=== PATIENT | female | born 1965 | race Hispanic/Latino ===

== ENCOUNTER 2022-07-09 11:39 | Inpatient (IN) | payer BC ==
[~2022-07-09] VITALS: Ht 160 cm; Wt 71.6 kg
[~2022-07-09 11:39] MED LIST: ALBUMIN (HUMAN) 25% 50 ML IV ONE; SODIUM BICARB 8.4% 50ML SYRINGE IVP ONE
[2022-07-09] MEDS ORDERED: IPRATROPIUM 0.5 MG/2.5 ML INH IH PRN (17:30)
[2022-07-09] MEDS ORDERED: DEXTROSE 50%-WATER 50 ML DISP.SYRIN IV PRN (17:30)
[2022-07-09] MEDS ORDERED: GLUCAGON 1MG KIT 1 MG ML IM PRN (17:30)
[2022-07-09 17:31] LABS: BASOPHILS % (AUTO) 0.7 % (0.0-5.0); EOSINOPHILS % (AUTO) 1.3 % (0.0-8.0); HEMATOCRIT 31.4 % (36-48); LYMPHOCYTES % (AUTO) 30.4 % (21.0-51.0); MEAN CORPUSCULAR HEMOGLOBIN 30.4 pg (27.0-33.0); MEAN CORPUSCULAR HGB CONC 31.8 g/dL (32.0-36.0); MEAN CORPUSCULAR VOLUME 95.4 fL (79-99); MONOCYTES % (AUTO) 9.2 % (3.0-13.0); NEUTROPHILS % (AUTO) 56.7 % (40.0-77.0); PLATELET COUNT (AUTO) 302 K/uL (130-400); RED BLOOD CELL COUNT(AUTO) 3.29 MIL/uL (4.00-5.50); WHITE BLOOD COUNT (AUTO) 8.2 K/uL (4.8-10.8)
[2022-07-09 17:43] LABS: INR 0.94 (0.85-1.15); PROTHROMBIN TIME 10.3 SEC (9.6-11.6)
[2022-07-09 17:44] LABS: PARTIAL THROMBOPLASTIN TIME 27.6 SEC (26.3-35.5)
[2022-07-09 17:54] LABS: ALBUMIN 3.2 g/dL (3.5-5.0); CREATININE 4.4 mg/dL (0.5-1.5); POTASSIUM 4.9 mmol/L (3.5-5.1); THYROID STIMULATING HORMONE 4.18 uIU/mL (0.36-3.74); TOTAL PROTEIN, SERUM 7.2 g/dL (6.0-8.3)
[2022-07-09 18:02] LABS: HEMOGLOBIN A1C 8.4 % (4.0-6.0)
[2022-07-09 20:45] VITALS: BP 140/70
[2022-07-09] MEDS: METOPROLOL TARTRATE 25 MG TAB PO SCH (20:59)
[2022-07-09] MEDS ORDERED: INSULIN GLARGINE 100 UNITS/ML 10 ML VIAL SQ SCH (21:00)
[2022-07-09] MEDS ORDERED: INSULIN HUMULIN R 100 UNIT/ML 3ML SQ SCH (21:00)
[2022-07-09] MEDS: INSULIN HUMULIN R 100 UNIT/ML 3ML SQ SCH (21:08)
[2022-07-10] VITALS (27 sets, daily range): BP systolic 87–170; BP diastolic 41–78
[2022-07-10 03:40] LABS: MEAN CORPUSCULAR HEMOGLOBIN 30.5 pg (27.0-33.0); MEAN CORPUSCULAR HGB CONC 32.3 g/dL (32.0-36.0); MEAN CORPUSCULAR VOLUME 94.3 fL (79-99); PLATELET COUNT (AUTO) 313 K/uL (130-400); RED BLOOD CELL COUNT(AUTO) 3.18 MIL/uL (4.00-5.50); RED CELL DISTRIBUTION WIDTH 15.9 % (11.0-15.5); WHITE BLOOD COUNT (AUTO) 8.1 K/uL (4.8-10.8)
[2022-07-10 03:52] LABS: CREATININE 4.8 mg/dL (0.5-1.5); POTASSIUM 4.2 mmol/L (3.5-5.1)
[2022-07-10 03:53] LABS: MAGNESIUM 1.8 mg/dL (1.80-2.40)
[2022-07-10 04:06] LABS: EOSINOPHILS % (MANUAL) 1 % (1-6); LYMPHOCYTES % (MANUAL) 24 % (22-44); MAN.DIFF COMMENT-IMPRESSION MANUAL DIFFERENTIAL; MONOCYTES % (MANUAL) 10 % (2-9); PLATELET MORPHOLOGY COMMENT ADEQUATE; SEGMENTED NEUTROPHILS % 65 % (40-70)
[2022-07-10] MEDS ORDERED: MAGNESIUM 2GM PREMIX 50ML 50 ML IV PRN (05:00)
[2022-07-10] MEDS ORDERED: VANCOMYCIN 1G/250ML KIT 250 ML IV ONE (06:24)
[2022-07-10] MEDS: METOPROLOL TARTRATE 25 MG TAB PO SCH (06:43)
[2022-07-10] MEDS: INSULIN HUMULIN R 100 UNIT/ML 3ML SQ SCH ×2 (07:30→11:30)
[2022-07-10] MEDS ORDERED: DELNIDO FORMULA 2 BAG IV ONE (07:41)
[2022-07-10] MEDS ORDERED: NOREPINEPHRINE BITARTRATE 8 MG in DEXTROSE 5%-WATER 250 ML IV PRN (08:00)
[2022-07-10] MEDS ORDERED: AMINOCAPROIC ACID 5,000MG VIAL 15,000 MG in 0.9% NACL 500ML IV.SOLN 420 ML IV PRN (08:00)
[2022-07-10] MEDS ORDERED: EPINEPHRINE PF 1MG (1:1,000) 10 MG in 0.9% NACL 250ML 240 ML IV PRN (08:00)
[2022-07-10] MEDS: VANCOMYCIN 1G VIAL IVPB SCH ×2 (08:30→10:56)
[2022-07-10] MEDS ORDERED: ASPIRIN 81MG CHEW TAB PO SCH (09:00)
[2022-07-10] MEDS ORDERED: NOREPINEPHRINE BITARTRATE 1 MG/1 ML ML IV ONE ×2 (09:36→12:13)
[2022-07-10] MEDS ORDERED: NITROGLYCERIN 50MG/D5W 250ML 1 BOT ONE (10:04)
[2022-07-10] MEDS ORDERED: VANCOMYCIN 1G VIAL ONE ×4 (10:27→11:09)
[2022-07-10] MEDS ORDERED: ROPIVACAINE 0.5% 5MG/ML 30ML IJ ONE (10:27)
[2022-07-10] MEDS ORDERED: PAPAVERINE HCL 30 MG/ML 2ML VIAL ONE (10:29)
[2022-07-10] MEDS ORDERED: MIDAZOLAM HCL 1 MG/ML 2ML VIAL ONE (12:13)
[2022-07-10] MEDS ORDERED: HEPARIN 10,000 UNIT/10ML (1,000 UNIT/ML) VIAL ONE (12:13)
[2022-07-10] MEDS ORDERED: EPINEPHRINE PF 1MG (1:1,000) 1 MG/ML AMP ONE (12:13)
[2022-07-10] MEDS ORDERED: PROPOFOL 10 MG/ML 20ML VIAL IV ONE ×2 (12:13→16:41)
[2022-07-10] MEDS ORDERED: LIDOCAINE PF 100MG/5ML (2%) SYRINGE 5ML ONE (12:13)
[2022-07-10] MEDS ORDERED: AMINOCAPROIC ACID 5,000MG VIAL ONE (12:13)
[2022-07-10] MEDS ORDERED: ESMOLOL HCL 10 MG/ML 10 ML VIAL ONE (12:13)
[2022-07-10] MEDS ORDERED: FENTANYL CITRATE PF 50 MCG/1 ML 20ML VIAL IJ ONE (12:13)
[2022-07-10] MEDS ORDERED: SODIUM BICARB 50MEQ 50ML VIAL 150 ML ONE (12:13)
[2022-07-10] MEDS ORDERED: PROTAMINE SULFATE 10 MG/ML 25ML VIAL IV ONE (12:13)
[2022-07-10] MEDS ORDERED: ROCURONIUM 10MG/1ML SYR 10 MG/ML ML ONE ×2 (12:13→15:04)
[2022-07-10] MEDS ORDERED: ETOMIDATE 20MG VIAL ONE (12:14)
[2022-07-10 12:45] LABS: ABG BASE EXCESS -3.2 mmol/L (-2.0-3.0); ABG HCO3 20.5 mmol/L (21.0-28.0); ABG OXYGEN SATURATION 99.7 % (95.0-99.0); ABG PCO2 32 mmHg (32-45)
[2022-07-10] MEDS ORDERED: MAGNESIUM SULFATE 1 GM/2 ML VIAL ONE ×2 (14:06→14:07)
[2022-07-10] MEDS ORDERED: AMIODARONE 150MG VIAL ONE (14:13)
[2022-07-10 14:50] LABS: ABG BASE EXCESS 1.6 mmol/L (-2.0-3.0); ABG HCO3 22.7 mmol/L (21.0-28.0); ABG OXYGEN SATURATION 99.5 % (95.0-99.0); ABG PCO2 23 mmHg (32-45)
[2022-07-10 15:31] LABS: ABG BASE EXCESS -2.9 mmol/L (-2.0-3.0); ABG HCO3 20.4 mmol/L (21.0-28.0); ABG OXYGEN SATURATION 99.4 % (95.0-99.0); ABG PCO2 29 mmHg (32-45)
[2022-07-10 16:21] LABS: ABG BASE EXCESS 0.1 mmol/L (-2.0-3.0); ABG HCO3 22.9 mmol/L (21.0-28.0); ABG OXYGEN SATURATION 99.5 % (95.0-99.0); ABG PCO2 30 mmHg (32-45)
[2022-07-10] MEDS: 0.9%NACL 10ML VIAL IVP SCH (17:00)
[2022-07-10] MEDS ORDERED: MAGNESIUM SULFATE 1 GM in 0.9%NACL 50ML 50 ML IV PRN ×4 (17:00)
[2022-07-10] MEDS ORDERED: ACETAMINOPHEN 650 MG SUPPOSITORY RC PRN (17:00)
[2022-07-10] MEDS ORDERED: DEXTROSE 50%-WATER 50 ML DISP.SYRIN IV PRN (17:00)
[2022-07-10] MEDS ORDERED: MORPHINE 4 MG SYG IVP PRN (17:00)
[2022-07-10] MEDS ORDERED: LACTATED RINGERS 1000ML 1,000 ML IV SCH (17:00)
[2022-07-10] MEDS ORDERED: 0.9%NACL 10ML VIAL IVP PRN (17:00)
[2022-07-10] MEDS ORDERED: POTASSIUM CHLORIDE 20MEQ/100ML 100 ML IV PRN (17:00)
[2022-07-10] MEDS ORDERED: NITROGLYCERIN 50MG/D5W 250ML 250 BOT IV PRN (17:00)
[2022-07-10] MEDS ORDERED: GLUCAGON 1MG KIT 1 MG ML IM PRN (17:00)
[2022-07-10] MEDS ORDERED: MEPERIDINE-PF 25 MG/ML SYG IVP PRN (17:00)
[2022-07-10] MEDS ORDERED: HYDROCODONE/ACETAMINOPHEN 5/325 MG TAB PO PRN (17:00)
[2022-07-10] MEDS ORDERED: ALBUMIN (HUMAN) 5% 250 ML IV PRN (17:00)
[2022-07-10] MEDS ORDERED: CALCIUM GLUC 1GM/10ML VIAL IV PRN (17:00)
[2022-07-10 17:11] LABS: ABG BASE EXCESS 2.6 mmol/L (-2.0-3.0); ABG HCO3 24.9 mmol/L (21.0-28.0); ABG PCO2 29 mmHg (32-45)
[2022-07-10] MEDS: HYDRALAZINE 20MG/ML VIAL IV PRN (17:24)
[2022-07-10 17:26] LABS: HEMATOCRIT 19.7 % (36-48)
[2022-07-10] MEDS ORDERED: INSULIN REGULAR, HUMAN 3ML 100 UNIT in 0.9%NACL 100ML 99 ML IV SCH ×2 (17:30)
[2022-07-10] MEDS ORDERED: NICARDIPINE 25MG INJ 100 MG in 0.9%NACL 100ML 60 ML IV SCH (17:30)
[2022-07-10 17:31] LABS: CREATININE 4.2 mg/dL (0.5-1.5); MAGNESIUM 3.4 mg/dL (1.80-2.40); POTASSIUM 4.2 mmol/L (3.5-5.1)
[2022-07-10] MEDS ORDERED: 0.9% NACL 500ML IV.SOLN 500 ML IV ONE ×2 (17:50→19:01)
[2022-07-10] MEDS: VANCOMYCIN IV SCH (18:25)
[2022-07-10] MEDS: [UNRECOGNIZED DRUG - OTHER] IV SCH (18:25)
[2022-07-10 18:30] LABS: ABG BASE EXCESS -2.4 mmol/L (-2.0-3.0); ABG HCO3 20.9 mmol/L (21.0-28.0); ABG OXYGEN SATURATION 98.5 % (95.0-99.0); ABG PCO2 29 mmHg (32-45)
[2022-07-10 19:33] LABS: ABG BASE EXCESS 0.1 mmol/L (-2.0-3.0); ABG HCO3 24.1 mmol/L (21.0-28.0); ABG OXYGEN SATURATION 98.8 % (95.0-99.0); ABG PCO2 36 mmHg (32-45)
[2022-07-10 20:34] LABS: ABG BASE EXCESS -0.4 mmol/L (-2.0-3.0); ABG HCO3 23.5 mmol/L (21.0-28.0); ABG OXYGEN SATURATION 98.9 % (95.0-99.0); ABG PCO2 36 mmHg (32-45)
[2022-07-10] MEDS: ATORVASTATIN 20 MG TABLET PO SCH (20:55)
[2022-07-10] MEDS: CARVEDILOL 3.125 MG TABLET PO SCH (21:00)
[2022-07-10] MEDS: ONDANSETRON 4MG INJ IVP PRN (21:04)
[2022-07-10] MEDS: METOCLOPRAMIDE 10 MG/2 ML VIAL IVP PRN (21:29)
[2022-07-10 21:44] LABS: ABG HCO3 21.1 mmol/L (21.0-28.0); ABG OXYGEN SATURATION 98.4 % (95.0-99.0); ABG PCO2 39 mmHg (32-45)
[2022-07-10] MEDS: POTASSIUM CHLORIDE 20MEQ/100ML 100 ML IV PRN ×2 (21:54→22:57)
[2022-07-10] MEDS ORDERED: ALBUMIN (HUMAN) 5% 250 ML IV SCH (22:00)
[2022-07-10] MEDS ORDERED: SODIUM BICARB 50MEQ 50ML VIAL IV ONE (22:00)
[2022-07-10] MEDS: ACETAMINOPHEN 325 MG TAB PO PRN (22:17)
[2022-07-11] VITALS (80 sets, daily range): BP systolic 87–152; BP diastolic 34–78
[2022-07-11] MEDS: 0.9%NACL 10ML VIAL IVP SCH ×3 (00:51→17:00)
[2022-07-11] MEDS ORDERED: HYDR-3420 PO (01:50)
[2022-07-11] MEDS ORDERED: GABA-529 PO (01:50)
[2022-07-11] MEDS ORDERED: LEVO25CA4 PO (01:50)
[2022-07-11] MEDS ORDERED: CALC667C10 PO (01:50)
[2022-07-11] MEDS ORDERED: BENZ-70 PO (01:50)
[2022-07-11] MEDS ORDERED: LORA10TA7 PO (01:50)
[2022-07-11] MEDS ORDERED: FURO40TA5 PO (01:50)
[2022-07-11] MEDS ORDERED: IRON150C5 PO (01:50)
[2022-07-11] MEDS ORDERED: ATOR10 PO (01:50)
[2022-07-11] MEDS ORDERED: CARV12.511 PO (01:50)
[2022-07-11 04:38] LABS: HEMATOCRIT 24.1 % (36-48); MEAN CORPUSCULAR HEMOGLOBIN 30.5 pg (27.0-33.0); MEAN CORPUSCULAR HGB CONC 32.4 g/dL (32.0-36.0); MEAN CORPUSCULAR VOLUME 94.1 fL (79-99); RED BLOOD CELL COUNT(AUTO) 2.56 MIL/uL (4.00-5.50); WHITE BLOOD COUNT (AUTO) 11.7 K/uL (4.8-10.8)
[2022-07-11 05:20] LABS: CREATININE 4.9 mg/dL (0.5-1.5); PHOSPHORUS 3.5 mg/dL (2.5-4.9); POTASSIUM 4.5 mmol/L (3.5-5.1)
[2022-07-11] MEDS: VANCOMYCIN IV SCH ×2 (06:00→17:56)
[2022-07-11] MEDS ORDERED: TEMAZEPAM 15 MG CAPSULE PO PRN (06:00)
[2022-07-11] MEDS: [UNRECOGNIZED DRUG - OTHER] IV SCH ×2 (06:00→17:56)
[2022-07-11] MEDS: CARVEDILOL 3.125 MG TABLET PO SCH ×2 (08:42→20:00)
[2022-07-11] MEDS: DOCUSATE CALCIUM 240 MG CAP PO SCH (08:42)
[2022-07-11] MEDS: FERROUS SULFATE 325 MG TABLET.DR PO SCH (08:47)
[2022-07-11] MEDS: FAMOTIDINE 20MG VIAL IV SCH (08:47)
[2022-07-11] MEDS: CLOPIDOGREL 75MG TAB PO SCH (08:47)
[2022-07-11] MEDS: ASPIRIN 81 MG EC TAB PO SCH (08:47)
[2022-07-11] MEDS: HYDROCODONE/ACETAMINOPHEN 5/325 MG TAB PO PRN ×3 (08:48→20:00)
[2022-07-11] MEDS ORDERED: SOLU-MEDROL 125MG VIAL IVP ONE (09:00)
[2022-07-11] MEDS ORDERED: 0.9%NACL 1000ML 1,000 ML IV ONE (09:52)
[2022-07-11] MEDS ORDERED: ALBUMIN (HUMAN) 5% 500 ML IV SCH (10:00)
[2022-07-11 10:39] LABS: HEMATOCRIT 24.9 % (36-48)
[2022-07-11 11:09] LABS: ALBUMIN 3.3 g/dL (3.5-5.0); CREATININE 3.6 mg/dL (0.5-1.5)
[2022-07-11] MEDS: HEPARIN 5,000 UNIT VIAL IV PRN (11:19)
[2022-07-11 11:34] LABS: % IRON SATURATION 17.1 % (22-44)
[2022-07-11] MEDS: ONDANSETRON 4MG INJ IVP PRN (11:55)
[2022-07-11] MEDS: METOCLOPRAMIDE 10 MG/2 ML VIAL IVP PRN (16:01)
[2022-07-11] MEDS: EPOETIN ALFA-EPBX (NON-ESRD) 10,000 UNIT/ML VIAL SQ SCH (20:00)
[2022-07-11] MEDS: ATORVASTATIN 20 MG TABLET PO SCH (20:00)
[2022-07-11 23:04] LABS: HEPATITIS B SURFACE ANTIGEN Non-Reactive (Nonreactive)
[2022-07-12] VITALS (51 sets, daily range): BP systolic 106–167; BP diastolic 39–84
[2022-07-12] MEDS: HYDROCODONE/ACETAMINOPHEN 5/325 MG TAB PO PRN ×3 (00:42→14:10)
[2022-07-12] MEDS: 0.9%NACL 10ML VIAL IVP SCH ×3 (00:43→17:00)
[2022-07-12 03:56] LABS: HEMATOCRIT 26.3 % (36-48); MEAN CORPUSCULAR HEMOGLOBIN 29.9 pg (27.0-33.0); MEAN CORPUSCULAR HGB CONC 31.6 g/dL (32.0-36.0); MEAN CORPUSCULAR VOLUME 94.6 fL (79-99); RED BLOOD CELL COUNT(AUTO) 2.78 MIL/uL (4.00-5.50); RED CELL DISTRIBUTION WIDTH 16.7 % (11.0-15.5); WHITE BLOOD COUNT (AUTO) 15.5 K/uL (4.8-10.8)
[2022-07-12 04:14] LABS: ALBUMIN 3.2 g/dL (3.5-5.0); CREATININE 4.1 mg/dL (0.5-1.5); POTASSIUM 4.2 mmol/L (3.5-5.1); TOTAL PROTEIN, SERUM 6.4 g/dL (6.0-8.3)
[2022-07-12 04:43] LABS: MAGNESIUM 2.5 mg/dL (1.80-2.40)
[2022-07-12] MEDS ORDERED: BISACODYL 10 MG SUPP.RECT RC PRN (06:00)
[2022-07-12] MEDS ORDERED: MAG/ALUM/SIMETH 30 ML UDCUP PO PRN (06:00)
[2022-07-12] MEDS: CLOPIDOGREL 75MG TAB PO SCH (08:56)
[2022-07-12] MEDS: FERROUS SULFATE 325 MG TABLET.DR PO SCH (08:56)
[2022-07-12] MEDS: FAMOTIDINE 20MG VIAL IV SCH (08:56)
[2022-07-12] MEDS: ASPIRIN 81 MG EC TAB PO SCH (08:57)
[2022-07-12] MEDS: ONDANSETRON 4MG INJ IVP PRN ×2 (08:57→21:29)
[2022-07-12] MEDS: CARVEDILOL 3.125 MG TABLET PO SCH ×2 (08:57→20:56)
[2022-07-12] MEDS: DOCUSATE CALCIUM 240 MG CAP PO SCH (09:02)
[2022-07-12] MEDS: HEPARIN 5,000 UNIT VIAL IV PRN (12:36)
[2022-07-12] MEDS ORDERED: BENZOCAINE/MENTH/CETYLPYRD CL 1 EACH LOZENGE MM PRN (13:30)
[2022-07-12] MEDS: EPOETIN ALFA-EPBX (NON-ESRD) 10,000 UNIT/ML VIAL SQ SCH (15:40)
[2022-07-12] MEDS ORDERED: SOLU-MEDROL 125MG VIAL ONE (15:53)
[2022-07-12] MEDS: INSULIN HUMULIN R 100 UNIT/ML 3ML SQ SCH ×2 (16:30→21:16)
[2022-07-12] MEDS: ATORVASTATIN 20 MG TABLET PO SCH (20:51)
[2022-07-12] MEDS: ACETAMINOPHEN 325 MG TAB PO PRN (21:31)
[2022-07-13] VITALS (24 sets, daily range): BP systolic 70–170; BP diastolic 26–84
[2022-07-13] MEDS: 0.9%NACL 10ML VIAL IVP SCH ×3 (01:00→17:00)
[2022-07-13 04:31] LABS: BASOPHILS % (AUTO) 0.1 % (0.0-5.0); HEMATOCRIT 26.5 % (36-48); LYMPHOCYTES % (AUTO) 7.3 % (21.0-51.0); MEAN CORPUSCULAR HEMOGLOBIN 30.6 pg (27.0-33.0); MEAN CORPUSCULAR HGB CONC 32.8 g/dL (32.0-36.0); MEAN CORPUSCULAR VOLUME 93.3 fL (79-99); MONOCYTES % (AUTO) 2.2 % (3.0-13.0); NEUTROPHILS % (AUTO) 89.8 % (40.0-77.0); PLATELET COUNT (AUTO) 217 K/uL (130-400); RED BLOOD CELL COUNT(AUTO) 2.84 MIL/uL (4.00-5.50); RED CELL DISTRIBUTION WIDTH 15.9 % (11.0-15.5)
[2022-07-13 04:53] LABS: CREATININE 3.5 mg/dL (0.5-1.5); PHOSPHORUS 5.8 mg/dL (2.5-4.9); POTASSIUM 4.2 mmol/L (3.5-5.1)
[2022-07-13] MEDS ORDERED: NIFEDIPINE 10 MG CAP PO SCH (09:00)
[2022-07-13] MEDS: DOCUSATE CALCIUM 240 MG CAP PO SCH (09:00)
[2022-07-13] MEDS: ASPIRIN 81 MG EC TAB PO SCH (09:44)
[2022-07-13] MEDS: FERROUS SULFATE 325 MG TABLET.DR PO SCH (09:45)
[2022-07-13] MEDS: CLOPIDOGREL 75MG TAB PO SCH (09:45)
[2022-07-13] MEDS: CARVEDILOL 3.125 MG TABLET PO SCH ×2 (09:45→21:40)
[2022-07-13] MEDS: ACETAMINOPHEN 325 MG TAB PO PRN ×2 (09:53→18:56)
[2022-07-13] MEDS: INSULIN HUMULIN R 100 UNIT/ML 3ML SQ SCH ×3 (14:12→21:45)
[2022-07-13] MEDS: ATORVASTATIN 20 MG TABLET PO SCH (21:40)
[2022-07-14] VITALS (20 sets, daily range): BP systolic 125–174; BP diastolic 55–83
[2022-07-14] MEDS: ACETAMINOPHEN 325 MG TAB PO PRN (02:52)
[2022-07-14 04:29] LABS: BASOPHILS % (AUTO) 0.1 % (0.0-5.0); EOSINOPHILS % (AUTO) 0.2 % (0.0-8.0); HEMATOCRIT 24.2 % (36-48); LYMPHOCYTES % (AUTO) 18.6 % (21.0-51.0); MEAN CORPUSCULAR HEMOGLOBIN 30.2 pg (27.0-33.0); MEAN CORPUSCULAR HGB CONC 33.1 g/dL (32.0-36.0); MEAN CORPUSCULAR VOLUME 91.3 fL (79-99); MONOCYTES % (AUTO) 8.5 % (3.0-13.0); NEUTROPHILS % (AUTO) 72.1 % (40.0-77.0); NUCLEATED RED BLOOD CELLS 0.2 % (0.0-0.19); PLATELET COUNT (AUTO) 246 K/uL (130-400); RED BLOOD CELL COUNT(AUTO) 2.65 MIL/uL (4.00-5.50); RED CELL DISTRIBUTION WIDTH 15.4 % (11.0-15.5); WHITE BLOOD COUNT (AUTO) 10.7 K/uL (4.8-10.8)
[2022-07-14 04:44] LABS: CREATININE 4.8 mg/dL (0.5-1.5); POTASSIUM 3.3 mmol/L (3.5-5.1)
[2022-07-14] MEDS: POTASSIUM CHLORIDE 20MEQ/100ML 100 ML IV PRN (06:17)
[2022-07-14] MEDS: INSULIN HUMULIN R 100 UNIT/ML 3ML SQ SCH ×2 (07:30→11:30)
[2022-07-14] MEDS: HEPARIN 5,000 UNIT VIAL IV PRN (13:15)
[2022-07-14] MEDS: HYDRALAZINE 20MG/ML VIAL IV PRN (13:29)
[2022-07-14] MEDS: EPOETIN ALFA-EPBX (NON-ESRD) 10,000 UNIT/ML VIAL SQ SCH (13:31)
[2022-07-14] MEDS ORDERED: HYDRALAZINE HCL 10 MG TABLET PO SCH ×2 (14:00→21:00)
[2022-07-14] MEDS ORDERED: FERROUS SULFATE 325 MG TABLET.DR PO SCH ×2 (15:00→21:00)
[2022-07-14] MEDS ORDERED: CARVEDILOL 3.125 MG TABLET PO SCH (15:00)
[2022-07-14] MEDS ORDERED: DOCUSATE CALCIUM 240 MG CAP PO SCH (21:00)
[2022-07-14] MEDS ORDERED: ASPIRIN 81 MG EC TAB PO SCH (21:00)
[2022-07-14] MEDS ORDERED: CLOPIDOGREL 75MG TAB PO SCH (21:00)
[2022-07-15] MEDS ORDERED: LEVOTHYROXINE 25 MCG TABLET PO SCH (06:30)
== END 2022-07-14 17:44 | DRG 235 ==
LOC: 2DH 16:36 → 2CV 07-10 07:53 → 2BH 07-11 05:43 → 2DH 07-13 16:16
PROVIDERS: ADMIT Internal Medicine; ATTEND Internal Medicine
PROC: B24BZZ4 Ultrasonography of Heart with Aorta, Transesophageal (ICD-10-PCS; 2022-07-10)
PROC: 30233N1 Transfusion of Nonautologous Red Blood Cells into Peripheral Vein, Percutaneous Approach (ICD-10-PCS; 2022-07-10)
PROC: 30233K1 Transfusion of Nonautologous Frozen Plasma into Peripheral Vein, Percutaneous Approach (ICD-10-PCS; 2022-07-10)
PROC: 30233R1 Transfusion of Nonautologous Platelets into Peripheral Vein, Percutaneous Approach (ICD-10-PCS; 2022-07-10)
PROC: 0210093 Bypass Coronary Artery, One Artery from Coronary Artery with Autologous Venous Tissue, Open Approach (ICD-10-PCS; principal; 2022-07-10 12:11)
PROC: 02100Z9 Bypass Coronary Artery, One Artery from Left Internal Mammary, Open Approach (ICD-10-PCS; 2022-07-10 12:11)
PROC: 06BQ4ZZ Excision of Left Saphenous Vein, Percutaneous Endoscopic Approach (ICD-10-PCS; 2022-07-10 12:11)
PROC: 02C00ZZ Extirpation of Matter from Coronary Artery, One Artery, Open Approach (ICD-10-PCS; 2022-07-10 12:11)
PROC: 5A1D70Z Performance of Urinary Filtration, Intermittent, Less than 6 Hours Per Day (ICD-10-PCS; 2022-07-11)
PROC: 5A1D70Z Performance of Urinary Filtration, Intermittent, Less than 6 Hours Per Day (ICD-10-PCS; 2022-07-12)
PROC: 5A1D70Z Performance of Urinary Filtration, Intermittent, Less than 6 Hours Per Day (ICD-10-PCS; 2022-07-14)
DX: I25.110 Atherosclerotic heart disease of native coronary artery with unstable angina pectoris (principal); I21.4 Non-ST elevation (NSTEMI) myocardial infarction; N18.6 End stage renal disease; I13.2 Hypertensive heart and chronic kidney disease with heart failure and with stage 5 chronic kidney disease, or end stage renal disease; I50.20 Unspecified systolic (congestive) heart failure; Z20.822 Contact with and (suspected) exposure to COVID-19; D63.8 Anemia in other chronic diseases classified elsewhere; E11.51 Type 2 diabetes mellitus with diabetic peripheral angiopathy without gangrene; E03.9 Hypothyroidism, unspecified; E11.40 Type 2 diabetes mellitus with diabetic neuropathy, unspecified; E11.610 Type 2 diabetes mellitus with diabetic neuropathic arthropathy; I25.5 Ischemic cardiomyopathy; I50.9 Heart failure, unspecified; Z79.899 Other long term (current) drug therapy; I25.2 Old myocardial infarction; Z86.16 Personal history of COVID-19; Z99.2 Dependence on renal dialysis; Z98.51 Tubal ligation status; Z90.49 Acquired absence of other specified parts of digestive tract; Z88.0 Allergy status to penicillin; Z87.01 Personal history of pneumonia (recurrent)
CPT/HCPCS: 36415; 71045; 80048; 80053; 80061; 82040; 82435; 82565; 82728; 82803; 82947; 82948; 83036; 83540; 83550; 83605; 83735; 84100; 84132; 84295; 84439; 84443; 84520; 84703; 85014; 85018; 85025; 85027; 85610; 85730; 86701; 86704; 86706; 86850; 86900; 86901; 86923; 86927; 87340; 87390; 87635; 87641; 90935; 93005; 93318; 94002; 94150; 97039; A7048; C1729; G0378; J0171; J0282; J0360; J1644; J1815; J2001; J2250; J2405; J2440; J2704; J2720; J2765; J2795; J2930; J3010; J3370; J3475; J3480; J3490; J7030; J7040; P9016; P9017; P9034; P9045; P9047